=== PATIENT | female | born 1965 | race Caucasian/White ===

== ENCOUNTER → 2017-01-25 | Outpatient (CLI) | payer OTHER ==
[2017-01-25 13:46] LABS: ALT/SGPT 27 U/L (12-78); AST/SGOT 16 U/L (15-37); BLOOD UREA NITROGEN 11 mg/dl (7-18); BUN/CREATININE RATIO 17.9 (10-20); CALCIUM 8.8 mg/dl (8.5-10.1); CARBON DIOXIDE 27 mmol/L (21-32); CHLORIDE 103 mmol/L (98-107); CREATININE 0.61 mg/dl (0.60-1.20); GLUCOSE 93 mg/dl (70-99); POTASSIUM 4.1 mmol/L (3.5-5.1); SODIUM 139 mmol/L (136-145)
[2017-01-25 13:47] LABS: CHOLESTEROL/HDL RATIO 2.4
[2017-01-25 13:48] LABS: ALB/GLOB RATIO 1.5 (0.9-2); ALKALINE PHOSPHATASE 38 U/L (45-117)
== END | disposition home or self-care (01) ==
LOC: C.LABPBG 11:53
PROVIDERS: ATTEND Family Medicine
DX: R53.81 Other malaise (principal); Z13.1 Encounter for screening for diabetes mellitus; Z13.220 Encounter for screening for lipoid disorders

== ENCOUNTER → 2017-08-02 | Outpatient (CLI) | payer OTHER ==
--- NOTE | 2017-08-02 15:59 | DIAGNOSTIC IMAGING REPORT ---
PELVIC ULTRASOUND, TRANSABDOMINAL AND TRANSVAGINAL HISTORY: N92.0 Menorrhagia [id number] COMPARISON: None. FINDINGS: Uterus: 7.3 x 4.6 x 4.0 cm. A few small Nabothian cysts. Endometrial stripe: 7 mm in thickness. Small amount fluid within the fundus of the endometrium. Right ovary: Normal in size and demonstrates normal color flow. A 1.5 cm complex cyst. This favors a corpus luteum. Left ovary: Normal in size and demonstrates normal color flow. Miscellaneous:No pelvic free fluid. IMPRESSION: The endometrium measures 7 mm in thickness and contains a small amount of fluid at the fundus. If the patient is postmenopausal this would be considered abnormal. Follow-up gynecologic consultation is recommended. Electronically signed by: Flaquito Nunez M.D. 08/02/2017 2:58 PM Dictated Date/Time: 08/02/2017 2:55 PM
[2017-08-02 16:56] LABS: BASO % 0.2 %; BASO ABS # 0.02 K/uL (0-0.2); COMPLETE YES; EOS % 0.8 %; HEMATOCRIT 38.7 % (37-47); IG% 0.1 %; LYMPH % 33.7 %; LYMPH ABS # 2.94 K/uL (1.2-3.4); MEAN CELL VOLUME 96.5 fL (80-100); MEAN CORPUSCULAR HEMOGLOBIN 32.4 pg (25-34); MEAN CORPUSCULAR HGB CONC 33.6 g/dl (32-36); MEAN PLATELET VOLUME 10.7 fL (7.4-10.4); MONO % 4.7 %; NEUT % 60.5 %; PLATELET COUNT 304 K/uL (130-400); RED BLOOD COUNT 4.01 M/uL (4.2-5.4); WHITE BLOOD COUNT 8.72 K/uL (4.8-10.8)
--- NOTE | 2017-08-04 07:54 | DIAGNOSTIC IMAGING REPORT ---
PELVIC ULTRASOUND, TRANSABDOMINAL AND TRANSVAGINAL HISTORY: N92.0 Menorrhagia [id number] COMPARISON: None. FINDINGS: Uterus: 7.3 x 4.6 x 4.0 cm. A few small Nabothian cysts. Endometrial stripe: 7 mm in thickness. Small amount fluid within the fundus of the endometrium. Right ovary: Normal in size and demonstrates normal color flow. A 1.5 cm complex cyst. This favors a corpus luteum. Left ovary: Normal in size and demonstrates normal color flow. Miscellaneous:No pelvic free fluid. IMPRESSION: The endometrium measures 7 mm in thickness and contains a small amount of fluid at the fundus. If the patient is postmenopausal this would be considered abnormal. Follow-up gynecologic consultation is recommended. Electronically signed by: Flaquito Nunez M.D. 08/02/2017 2:58 PM Dictated Date/Time: 08/02/2017 2:55 PM
== END | disposition home or self-care (01) ==
LOC: C.ULTRBC 12:23
PROVIDERS: ATTEND Family Medicine
DX: N92.0 Excessive and frequent menstruation with regular cycle (principal)